=== PATIENT | female | born 1970 | race Caucasian/White ===

== ENCOUNTER 2019-09-02 06:16 | Emergency (ER) | payer SELFPAY ==
[2019-09-02] MEDS ORDERED: NORMAL SALINE 500 ML IV ONE (06:51)
[2019-09-02 09:28] LABS: APPEARANCE,URINE SLIGHTLY-CLOUDY; BILIRUBIN,URINE NEGATIVE (NEGATIVE); COLOR,URINE YELLOW; GLUCOSE, URINE NEGATIVE (NEGATIVE); KETONES,URINE NEGATIVE (NEGATIVE); LEUKOCYTE ESTERASE,URINE NEGATIVE (NEGATIVE); NITRITE,URINE NEGATIVE (NEGATIVE); PROTEIN,URINE 30 mg/dL (NEGATIVE)
[2019-09-02 09:29] LABS: HEMATOCRIT 39.4 % (36.0-47.0); MEAN CORPUSCULAR HGB CONC 35.5 g/dL (32.0-36.0); MEAN CORPUSCULAR VOLUME 79 fl (80-97); PLATELET COUNT 265 10^3/uL (150-450); RED CELL DISTRIBUTION WIDTH 14.7 % (11.5-14.0); WHITE BLOOD COUNT 7.2 10^3/uL (4.0-10.5)
[2019-09-02 09:44] LABS: ALBUMIN 4.2 g/dL (3.5-5.0); ALKALINE PHOSPHATASE 104 U/L (38-126); ANION GAP 8 (5-19); ASPARTATE AMINO TRANSFERASE 70 U/L (14-36); BILIRUBIN,TOTAL 1.2 mg/dL (0.2-1.3); BLOOD UREA NITROGEN 18 mg/dL (7-20); CALCIUM 8.7 mg/dL (8.4-10.2); CARBON DIOXIDE 25 mmol/L (22-30); CHLORIDE 106 mmol/L (98-107); GLUCOSE 109 mg/dL (75-110); POTASSIUM 4.3 mmol/L (3.6-5.0); TOTAL PROTEIN 6.9 g/dL (6.3-8.2)
[2019-09-02 10:04] LABS: ABSOLUTE LYMPHOCYTES# (MANUAL) 0.6 10^3/uL (0.5-4.7); ABSOLUTE MONOCYTES # (MANUAL) 0.2 10^3/uL (0.1-1.4); BASOPHILS % (MANUAL) 0 % (0-2); EOSINOPHILS % (MANUAL) 0 % (0-6); LYMPHOCYTES % (MANUAL) 6 % (13-45); MONOCYTES % (MANUAL) 3 % (3-13); SEGMENTED NEUTROPHILS % (MAN) 89 % (42-78); TOTAL CELLS COUNTED 100
[2019-09-02 10:05] LABS: ANISOCYTOSIS SLIGHT; PLATELET COMMENT ADEQUATE; POLYCHROMASIA SLIGHT
[2019-09-02] MEDS ORDERED: ONDANSETRON HCL INJ/PF 4 MG/2 ML SDV IV ONE (11:01)
[2019-09-02] MEDS ORDERED: NORMAL SALINE 1000 ML 1,000 ML IV ONE (11:01)
--- NOTE | 2019-09-02 11:05 | ER Document Report ---
ED General - General Chief Complaint: Abdominal Pain Stated Complaint: VOMITING,HEADACHE Time Seen by Provider: 09/02/19 10:04 Mode of Arrival: Ambulatory Information source: Patient Notes: Patient is a 49-year-old female presenting to the emergency department chief complaint of abdominal discomfort nausea and vomiting and migraine headache. Patient states that yesterday she was feeling somewhat poorly and had a headache and then about 5 PM started having nausea and vomiting which is continued until now. Patient states that she works at a [employer] several of the patients and another staff member has similar symptoms. Patient denies travel history trauma history no obvious bad food exposure. TRAVEL OUTSIDE OF THE [place] IN LAST 30 DAYS: No - HPI Onset: Yesterday Onset/Duration: Gradual, Persistent Quality of pain: Achy Severity: Mild Pain Level: 1 Associated symptoms: Headache, Nausea, Vomiting Exacerbated by: Denies Relieved by: Denies Similar symptoms previously: No Recently seen / treated by doctor: No - Related Data Allergies/Adverse Reactions: Penicillins Allergy (Verified 09/02/19 06:45) Past Medical History - General Information source: Patient - Social History Smoking Status: Never Smoker Chew tobacco use (# tins/day): No Frequency of alcohol use: None Drug Abuse: None Lives with: Family Family History: Reviewed & Not Pertinent Patient has suicidal ideation: No Patient has homicidal ideation: No Neurological Medical History: Reports: Hx Migraine Past Surgical History: Reports: Hx Appendectomy, Hx Section, Hx Cholecystectomy Review of Systems - Review of Systems Notes: REVIEW OF SYSTEMS: CONSTITUTIONAL : Per HPI EENT: Denies eye, ear, throat, or mouth pain or symptoms. Denies nasal or sinus congestion. CARDIOVASCULAR: Denies chest pain. RESPIRATORY: Denies cough, cold, or chest congestion. Denies shortness of breath, difficulty breathing, or wheezing. GASTROINTESTINAL: Per HPI GENITOURINARY: Denies difficulty urinating, painful urination, burning, frequency, or blood in urine. MUSCULOSKELETAL: Denies neck or back pain or joint pain or swelling. SKIN: Denies rash or skin lesions. HEMATOLOGIC : Denies easy bruising or bleeding. NEUROLOGICAL: Denies altered mental status or loss of consciousness. Reports headache. Denies weakness or paralysis or loss of use of either side. Denies problems with gait or speech. Denies sensory or motor loss. PSYCHIATRIC: Denies suicidal or homicidal ideations 10 Systems are negative unless otherwise specified above Physical Exam - Vital signs Vitals: Temp Pulse Resp BP Pulse Ox 98.7 F 95 18 124/74 98 09/02/19 06:50 09/02/19 06:50 09/02/19 06:50 09/02/19 06:50 09/02/19 06:50 - Notes Notes: PHYSICAL EXAMINATION: GENERAL: Well-appearing, well-nourished and in no acute distress. HEAD: Atraumatic, normocephalic. EYES: Pupils equal round and reactive to light, extraocular movements intact, sclera anicteric, conjunctiva are normal. ENT: nares patent, oropharynx clear without exudates. Moist mucous membranes. NECK: Normal range of motion, supple without lymphadenopathy, no appreciable JVD LUNGS: Lungs clear to auscultation bilaterally and equal. No wheezes rales or rhonchi. HEART: Regular rate and rhythm without murmurs ABDOMEN: Soft, nontender, normal bowel sounds. No guarding, no rebound. No masses appreciated. EXTREMITIES: Active full range of motion, no pitting or edema. No cyanosis. 2+ pulses x4 NEUROLOGICAL: No focal neurological deficits. Moves all extremities s pontaneously and on command. SKIN: Warm, Dry, and intact. Normal turgor, no rashes or lesions noted. Course - Re-evaluation Re-evalutation: 09/02/19 12:25 Patient has been reevaluated several times while in the emergency department. Patient has remained stable without decompensation. After review of applicable laboratory and/or radiologic results, there are no signs of acute abdomen to include: acute appendicitis, pancreatitis, cholelithiasis or cholecystitis, bowel obstruction or ileus, there are no signs of Aortic Dissection, diverticulitis or diverticulosis, Kidney abnormalities to include urinary tract infection, renal failure or kidney stones. At this time I feel the patient is stable for discharge. I have reviewed the laboratory results with the patient answered all questions. Patient is agreeable with discharge at this time. Patient is recommended to follow-up with primary care provider in the next several days for follow-up. Patient should return to the emergency department for worsening symptoms to include worsening pain, bloody vomitus, bloody diarrhea, inability to tolerate fluids or fever greater than 101 orally. - Vital Signs Vital signs: Temp Pulse Resp BP Pulse Ox 97.9 F 98 18 116/74 98 09/02/19 09:51 09/02/19 09:51 09/02/19 09:51 09/02/19 09:51 09/02/19 09:51 - Laboratory Result Diagrams: 09/02/19 09:00 09/02/19 09:00 Laboratory results interpreted by me: 09/02/19 09/02/19 09/02/19 09:00 09:00 09:00 MCV 79 L RDW 14.7 H Seg Neuts % (Manual) 89 H Lymphocytes % (Manual) 6 L AST 70 H ALT 61 H Urine Protein 30 H Urine Blood SMALL H Urine Urobilinogen 4.0 H Discharge - Discharge Clinical Impression: Viral syndrome Nausea and vomiting Qualifiers: Vomiting type: unspecified Vomiting Intractability: non-intractable Qualified Code(s): R11.2 - Nausea with vomiting, unspecified Headache Qualifiers: Headache type: unspecified Headache chronicity pattern: acute headache Intractability: not intractable Qualified Code(s): R51 - Headache Condition: Stable Disposition: HOME, SELF-CARE Instructions: Abdominal Pain ([facility]), Vomiting ([facility]), Viral Syndrome ([facility]) Prescriptions: Ondansetron [Zofran Odt 4 mg Tablet] 1 - 2 tab PO Q4H PRN #15 tab.rapdis PRN Reason: For Nausea/Vomiting Forms: Return to Work
[2019-09-02] MEDS ORDERED: ACETAMINOPHEN 325 MG TABLET PO ONE (12:27)
[2019-09-02 13:32] VITALS: BP 124/72
== END 2019-09-02 13:32 | disposition home or self-care (01) ==
LOC: ER 06:16
DX: B34.9 Viral infection, unspecified (principal); R11.2 Nausea with vomiting, unspecified; R51 Headache; R10.9 Unspecified abdominal pain; Z88.0 Allergy status to penicillin
CPT/HCPCS: 99284; 96361; 96374; 36415; 83690; 85025; 80053; 81001; J2405; J7030; J7040